=== PATIENT | female | born 1955 | race Asian ===

== ENCOUNTER 2018-10-25 14:17 | Outpatient (CLI) | payer OTHER | END 2018-10-25 23:59 | disposition home or self-care (01) | LOC: CFH 14:17 → EDSEX 14:17 → CFH 23:59 | PROVIDERS: ATTEND Internal Medicine | DX: M81.0 Age-related osteoporosis without current pathological fracture (principal); E89.0 Postprocedural hypothyroidism; E28.319 Asymptomatic premature menopause | CPT/HCPCS: 77080 ==